=== PATIENT | male | born 1965 | race Caucasian/White ===

== ENCOUNTER 2016-09-09 05:49 | Observation (INO) | payer BC ==
[2016-08-12 11:42] VITALS: BMI 44.0
[~2016-09-09] VITALS: Ht 172.7 cm; Wt 131.3 kg
[~2016-09-09 05:49] MED LIST: AMOX500C3 PO; AMOX875T PO; LISI40TA PO; METO25TA3 PO; PRLSR20 PO; WARF5TAB7 PO
[2016-09-09] MEDS ORDERED: LACTATED RINGER'S 1000ML 1,000 ML IV SCH (06:00)
[2016-09-09] MEDS ORDERED: ALL100 PO (06:15)
[2016-09-09 06:19] VITALS: BP 139/88; PULSE 78; TEMP 36.4; O2SAT 96; BMI 44.0
[2016-09-09 07:00] LABS: INR 1.8 (0.9-1.1); PARTIAL THROMBOPLASTIN RATIO 1.3
[2016-09-09] MEDS ORDERED: ATROPINE SULFATE 0.1 MG/ML 5ML SYR IV PRN (07:15)
[2016-09-09] MEDS ORDERED: EpHEDrine SULFATE INJ 50 MG/ML AMP IV PRN (07:15)
[2016-09-09] MEDS ORDERED: PROPOFOL IV EMULSION 10 MG/ML 100 ML VIAL IV ONE ×2 (07:49→09:29)
--- NOTE | 2016-09-09 07:58 | HISTORY & PHYSICAL EXAMINATION ---
DATE OF ADMISSION: 09/09/2016 CHIEF COMPLAINT: Palpitations. HISTORY OF PRESENT ILLNESS: This is a 51-year-old gentleman, who I had seen in my office last month secondary to palpitations and SVT. He has been having palpitations for a couple of years, but they have been getting more frequent and lasting longer. He had been on metoprolol and was increased; however, we cannot increase it further secondary to bradycardia. He has not had any improvement in his palpitations. His palpitations are associated with lightheadedness and dizziness. He wears Zio patch that revealed SVT. He went to [facility] because the symptoms were not resolving and he had to call EMS at that time. PAST MEDICAL HISTORY: Aortic valve insufficiency, paroxysmal atrial tachycardia, gastroesophageal reflux disease, bicuspid aortic valve, lower extremity edema, gout, Crum's esophagitis, hyperlipidemia, hypertension PAST SURGICAL HISTORY: Catheterization, EGD, colonoscopy and injections over the SI joint. ALLERGIES: TO METOCLOPRAMIDE AND PHENYLEPHRINE. FAMILY HISTORY: His father had a bicuspid aortic valve that was eventually replaced as well as his mitral valve. His sister has MVP and has had a stroke. His mother had coronary artery disease and [place]. His brother had coronary artery disease and CABG and with mitral valve surgery and leukemia. SOCIAL HISTORY: He is a lifelong nonsmoker, but he did chew tobacco, quit 22 years ago. Rare alcohol use. 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 HOME MEDICATIONS: Include; Augmentin prophylactically before dental work, Toprol 25 mg twice a day, omeprazole 20 mg daily, allopurinol 100 mg twice a day, Coumadin, lisinopril 40 mg daily, Lasix 20 mg three times a week as needed for fluid accumulation. REVIEW OF SYSTEMS: All other review of systems are essentially negative. See HPI for pertinent positives. PHYSICAL EXAMINATION: VITAL SIGNS: Blood pressure 139/88 heart rate 78 respiratory rate 20 . GENERAL: He is awake, alert and oriented x3, in no acute distress, sitting up comfortably on a stretcher. HEENT: Atraumatic. Extraocular motion intact. Sclerae is nonicteric. Mucous membranes are moist. NECK: Supple, no JVD appreciated. CARDIOVASCULAR: Normal S1, S2, regular rate and rhythm, no murmur appreciated, but he is bradycardic. PULMONARY: Clear to auscultation bilaterally. No wheezes, rales or rhonchi. ABDOMEN: Soft, nontender and nondistended. EXTREMITIES: No clubbing or cyanosis in bilateral fingers, +1 edema of the bilateral lower extremities. NEUROLOGIC: Grossly intact. SKIN: Grossly intact. PERTINENT TESTING: Lucille patch in 07/10/2016 to 08/10/2016; average heart rate 70 beats per minute, slowest 35 beats per minute at 7:30 in the morning while sleeping. The patient wants through the night. Idioventricular rhythm while sleeping; bursts of SVT correlated with symptoms longest, fastest was a minute and 23 seconds with an average heart rate of 189 beats per minute. EKG on 07/13/2016; sinus janny 54 beats per minute. EKG on 06/18/2016 at [facility]; SVT at 162 beats per minute. Exercise echo stress test on 07/10/2016 was negative for any inducible ischemia, normal left ventricular function, ejection fraction of 55-59%, bicuspid aortic valve, mild aortic valve sclerosis and grade 1 diastolic dysfunction. LABORATORY STUDIES: Preoperatively CBC and BMP are unremarkable. ASSESSMENT: 1. Paroxysmal supraventricular tachycardia which might be atrial flutter; difficult to ascertain on the EKG, symptomatic though. 2. Hypertension. 3. Hyperlipidemia. 4. Bicuspid aortic valve. 5. Lower extremity edema. 6. History of deep venous thrombosis of the left lower extremity in November 2015, remains on Coumadin. 7. Morbid obesity. PLAN: Recommend electrophysiology study with possible ablation. We discussed the risks which include but are not limited to sudden cardiac , cardiac arrhythmias, cerebrovascular accident, myocardial infarction, injury to the blood vessels, chamber of the heart or the need of electrical system where he would need a permanent pacemaker, and infection. He expressed understanding and wished to proceed. He can continue his Coumadin with a goal INR the day of the procedure between 2 and 2.5. He is to hold his metoprolol 2 days before the procedure. ALEJA
[2016-09-09] MEDS ORDERED: MIDAZOLAM HCL 1 MG/ML 2ML VIAL ONE (07:59)
[2016-09-09] MEDS ORDERED: FENTANYL CITRATE INJ 50 MCG/1 ML 2 ML VIAL ONE ×2 (07:59→09:41)
[2016-09-09] MEDS ORDERED: LIDOCAINE HCL 2% 2 ML VIAL (20MG/ML) ONE (08:38)
[2016-09-09] MEDS ORDERED: PROPOFOL IV EMULSION 10 MG/ML 20 ML VIAL IV ONE ×2 (09:17→11:44)
[2016-09-09] MEDS ORDERED: ONDANSETRON INJ 2 MG/ML 2 ML VIAL ONE (10:05)
--- NOTE | 2016-09-09 12:01 | [facility] Post Operative Brief Note ---
Immediate Operative Summary Operative Date Sep 09, 2016. Pre-Operative Diagnosis SVT Post-Operative Diagnosis AVNRT Procedure(s) Performed EPS, 3D MAPPING OF HIS BUNDLE AND C/S OS, SLOW PATHYWAY MODIFICATION, C/S PACING, ISOPREL INFUSION Surgeon FREDDIE ABARCA Fabrication Technician Surgeon(s) NONE Estimated Blood Loss <5CC Findings SEE OFFICIAL REPORT Fluids (cc crystalloids) 1500CC Specimens NONE Drains NONE Anesthesia 4MG VERSED; 200MCG FENTANYL; 1800MG PROPOFOL Complication(s) None Disposition PCU
--- NOTE | 2016-09-09 12:07 | Discharge Instructions ---
Discharge Instructions Date of Service Sep 09, 2016. Admission Reason for Admission: Supraventricular Tachycardia W/Ablation Discharge Discharge Diagnosis / Problem: AVNRT Discharge Goals Goal(s): Improve function Activity Recommendations Activity Limitations: as noted below Lifting Limitations: no more than 10 pounds (FOR 1 WEEK) Shower/Bathe: tomorrow Driving or Machine Use: resume 1 day after discharge . Instructions / Follow-Up Instructions / Follow-Up ACTIVITY RECOMMENDATIONS: It is common to feel weak and fatigue for a few days. * Do not drive or operate any motorized equipment for the next day. * Limit stair usage (2 or 3 trips a day only) for the next three days. * Do not lift anything heavier than 10 pounds for the next 7 days. * Do not engage in vigorous exercise or any sports for the next five days. * You may shower the day after your procedure, but do not immerse the area for three days. Cleanse the site gently with soap and water. SPECIAL CARE INSTRUCTIONS: * You may replace the pressure dressing or band-aid the morning after the procedure. * After your procedure, it is normal to have a small bruise or small lump at the site. Examine your site daily for any change in the bruise or lump, redness, swelling, drainage or numbness. Notify your doctor if any change. BLEEDING: * If there is a small amount of bleeding at the site, lie down and apply firm pressure with a clean cloth for ten minutes. When the bleeding stops, lie quietly keeping the procedure limb straight for six hours. Notify your doctor as soon as possible. * If the bleeding does not stop after ten minutes or if there is a large amount of bleeding or spurting, call 911 immediately. Continue to lie down and hold firm pressure until help arrives. SKIN IRRITATION: * You may experience some redness and/or swelling in the area where radiation was administered. If any skin irritation occurs, please contact your family physician. FOLLOW UP VISIT: Keep any scheduled doctor appointments. Current Hospital Diet Patient's current hospital diet: AHA Diet (Heart Healthy) Discharge Diet Recommended Diet: AHA Diet (Heart Healthy) Procedures Procedures Performed: EPS, 3D MAPPING OF HIS BUNDLE AND C/S OS, SLOW PATHYWAY MODIFICATION, C/S PACING, ISOPREL INFUSION Pending Studies Studies pending at discharge: no Medical Emergencies . Who to Call and When: Medical Emergencies: If at any time you feel your situation is an emergency, please call 911 immediately. . Non-Emergent Contact Non-Emergency issues call your: Plastic Extruding Machine Operator . . "Provider Documentation" section prepared by Mi Gomez. VTE Core Measure Inpt VTE Proph given/why not?: Warfarin (Coumadin)
--- NOTE | 2016-09-09 12:11 | Discharge Summary ---
Discharge Summary Date of Service Sep 09, 2016. Discharge Summary Admission Date: 09/09/2016 Discharge Date: Sep 10, 2016 Discharge Disposition: Home Principal Diagnosis: AVNRT Secondary Diagnoses/Problems: Sinus tachycardia HTN HLD Bicuspid AV LE edema DVT 11/2015 remains on coumadin Morbid obesity Procedures: EPS, 3d mapping of the HIS bundle and c/s os, slow pathyway modification; LA pacing, isuprel infusion Medication Reconciliation Continued Medications: Allopurinol (Allopurinol) 100 Mg Tab DAILY Amoxicillin (Amoxil) 500 Mg Cap 2000 MG PO UD PRN for Pre Treat, CAP TAKE 4 CAPSULES BY MOUTH 1 HOUR BEFORE DENTAL PROCEDURES Lisinopril (Zestril) 40 Mg Tab 40 MG PO QPM, TAB Metoprolol Succinate (Toprol Xl) 25 Mg Tabcr 25 MG PO BID, TAB Omeprazole (Prilosec) 20 Mg Capcr 20 MG PO QPM, CAP Warfarin Sod (Jantoven) 5 Mg Tab 7.5 MG PO MWF, TAB Warfarin Sod (Jantoven) 5 Mg Tab 5 MG PO SuTuThSa, TAB Admission Information Physical Exam (per Admitting): aaox3, NAD NC/AT No JVD NRL s1/s2, tachycardia CTA b/l no w/r/r soft NT/ND no edema b/l Hospital Course Pt admitted for elective EPS with ablation due to SVT. He underwent the procedure without any complications; found to have AVNRT had a slow pathway modification. He was monitored overnight and discharged home in stable condition following day. Total time spent on discharge = This includes examination of the patient, discharge planning, medication reconciliation, and communication with other providers. Discharge Instructions ACTIVITY RECOMMENDATIONS: It is common to feel weak and fatigue for a few days. * Do not drive or operate any motorized equipment for the next day. * Limit stair usage (2 or 3 trips a day only) for the next three days. * Do not lift anything heavier than 10 pounds for the next 7 days. * Do not engage in vigorous exercise or any sports for the next five days. * You may shower the day after your procedure, but do not immerse the area for three days. Cleanse the site gently with soap and water. SPECIAL CARE INSTRUCTIONS: * You may replace the pressure dressing or band-aid the morning after the procedure. * After your procedure, it is normal to have a small bruise or small lump at the site. Examine your site daily for any change in the bruise or lump, redness, swelling, drainage or numbness. Notify your doctor if any change. BLEEDING: * If there is a small amount of bleeding at the site, lie down and apply firm pressure with a clean cloth for ten minutes. When the bleeding stops, lie quietly keeping the procedure limb straight for six hours. Notify your doctor as soon as possible. * If the bleeding does not stop after ten minutes or if there is a large amount of bleeding or spurting, call 911 immediately. Continue to lie down and hold firm pressure until help arrives. SKIN IRRITATION: * You may experience some redness and/or swelling in the area where radiation was administered. If any skin irritation occurs, please contact your family physician. FOLLOW UP VISIT: Keep any scheduled doctor appointments.
[2016-09-09 13:01] VITALS: BP 153/72; PULSE 78; TEMP 36.8; O2SAT 98; Ht 172.7 cm; Wt 131.3 kg
--- NOTE | 2016-09-09 14:40 | Anesthesiology Progress Note ---
Anesthesia Post Op Note Date & Time Sep 09, 2016 at 14:40 Vital Signs Pain Intensity: 0.0 Vital Signs Past 12 Hours Date Time Temp Pulse Resp B/P Pulse Ox O2 Delivery O2 Flow Rate FiO2 09/09/16 13:01 36.8 78 18 153/72 98 Nasal Cannula 4.0 09/09/16 12:08 95 16 129/89 98 Nasal Cannula 4 09/09/16 11:58 93 16 112/75 98 Nasal Cannula 4 09/09/16 11:48 95 16 109/69 98 Nasal Cannula 4 09/09/16 06:19 36.4 78 20 139/88 96 Room Air Notes Mental Status: alert / awake / arousable, participated in evaluation Pt Amnestic to Procedure: Yes Nausea / Vomiting: adequately controlled Pain: adequately controlled Airway Patency, RR, SpO2: stable & adequate BP & HR: stable & adequate Hydration State: stable & adequate Anesthetic Complications: no major complications apparent
[2016-09-09] MEDS ORDERED: IV FLUIDS COMPLETED PRN (14:45)
[2016-09-09 15:29] VITALS: BP 126/78; PULSE 78; TEMP 36.7; O2SAT 97
[2016-09-09] MEDS ORDERED: WARFARIN SOD 7.5 MG TAB PO SCH (16:00)
[2016-09-09 19:46] VITALS: BP 129/75; PULSE 76; TEMP 36.6; O2SAT 97
[2016-09-09] MEDS ORDERED: LISINOPRIL 40 MG TAB PO SCH (21:00)
[2016-09-09 23:05] VITALS: BP 129/84; PULSE 72; TEMP 36.9; O2SAT 93
[2016-09-09 23:59] VITALS: O2SAT 93
--- NOTE | 2016-09-10 00:32 | OPERATIVE REPORT ---
DATE OF OPERATION: 09/09/2016 PREOPERATIVE DIAGNOSIS: Supraventricular tachycardia. POSTOPERATIVE DIAGNOSIS: Atrioventricular sylvia reentrant tachycardia. PROCEDURE: Electrophysiology study, 3D mapping of the His bundle and coronary sinus region, slow pathway modification, left atrial pacing via the coronary sinus, isuprel infusion. SURGEON: Mi Gomez DO AUTOMATIC OUTSOLE CUTTER: None. ANESTHESIA: Monitored anesthetic care given via the anesthesiology department, they gave a total of 4 mg of Versed, 200 mcg of fentanyl, 1800 mg of propofol. INTRAVENOUS FLUIDS: 1500 mL. ADDITIONAL MEDICATIONS: Zofran 4 mg. COMPLICATIONS: None. CONDITION: Stable. BLOOD LOSS: Less than 5 mL. URINE OUTPUT: Not applicable. SPECIMENS: None. DRAINS: None. FINDINGS: See below. INDICATIONS: This is a 51-year-old gentleman who has a past medical history of hypertension; hyperlipidemia; bicuspid aortic valve; lower extremity edema; DVT back in November of 2015, he is still on Coumadin; and morbid obesity. He has been having palpitations for years and has had documented SVT at the rate of 160, due to this he was recommended electrophysiology study with possible ablation. CONSENT: Consent was obtained prior to patient going into the electrophysiology lab. The patient was informed of risks, benefits and alternatives to the procedure. Risks include but not limited to sudden cardiac , cardiac arrhythmias, cerebrovascular accident, myocardial infarction, injury to the blood vessels, chamber of the hear or the [place] electrical system where he would need a permanent pacemaker, bleeding and infection. The patient understood these risks and agreed to go ahead with the procedure as planned. Informed consent was obtained. DESCRIPTION OF THE PROCEDURE: The patient was brought into the electrophysiology lab in a fasting state. He was connected to continuous lunchroom monitor. A timeout was performed to ensure patient's identity and procedure correctly. The patient was prepped and draped over the bilateral groins in normal surgical standard fashion. Monitored anesthetic care was given throughout the procedure via anesthesiology for patient's comfort level. [place] precautions were maintained throughout the procedure. 10 mL of 1% lidocaine were given in bilateral groins. Using modified Seldinger technique, venous access was obtained in the following manner. The left femoral vein, a 6-Barbadian sheath followed by Paty quad diagnostic catheter positioned in the right ventricular apex. A 7-Barbadian sheath with a [employer] quadripolar catheter positioned over the His bundle. A 7-Barbadian sheath followed by a [employer] DF curve Decapolar coronary sinus ____ sinus. The right femoral vein had a 6-Barbadian sheath followed by Paty quadripolar catheter positioned in the high right atrium, and eventually an SRO sheath followed by a [employer] 4 mm DF curve ablation catheter. With the catheters in place, an electrophysiology study was performed with the following findings: GA interval 174 milliseconds, QRS 96 milliseconds, right bundle branch underlying QT is 292 milliseconds, sinus cycle length was 452 milliseconds, the AV Wenckebach was found to be 240 milliseconds. The AV node ERP was less than or equal to the atrial ERP and atrial ERP was found to be 400/210. The right ventricular ERP was less than or equal to 400/200 with giving atrial extrastimuli I did have single echo beats. I gave up to triple atrial extrastimuli from the high right atrium and then as well coronary sinus without any inducible SVT, but I did have some occasional echoes. With isuprel at 2 was started and once we had an adequate response, electrophysiology study was performed with the following findings: Sinus cycle length 382 milliseconds, AH 66 milliseconds, HV 50 milliseconds, AV Wenckebach less than 200 milliseconds and the RV ERP was less than or equal to 350/200. The AV node ERP was less than or equal to the atrial, and the atrial ERP was 400/220. I gave up to triple atrial extrastimuli from the high right atrium and the coronary sinus, and burst down to 200 without any inducible SVT. We then stopped the isuprel and during washout I retried again to induce AV and SVT, which I ultimately did at 400/320/250 from the high right atrium. I had 12 beats of a tachycardia with a tachycardia cycle length was 340 milliseconds, the VA time was 0. Again, it was nonsustained and only lasting for 12 beats but I was able to reproduce it a few times, and the retrograde conduction was concentric on the SVT. Given that I had documented 12-lead and SVT around the same cycle length as nonsustained that I produced in the lab and nonsustained given its VA time and presence of echo beats, it is highly suggestive that he has evidence of AVNRT. We set up to do a slow pathway modification. It was at this point that the second venous access of the right femoral vein was obtained and the SRO sheath was placed and then the ablation catheter was placed. We did 3D mapping of the His bundle cloud as well as the coronary sinus. Then positioned the ablation catheter on the low right atrial septum wall and gave a series of radiofrequency ablation of 35 [place] for about 15-30 seconds with some of these ablations having good junctional rhythms during the ablation. After I gave a series of ablations, I then removed the catheter from the heart and set up to do a post-ablation electrophysiology study with the following findings: GA interval 204 milliseconds, QRS 136 milliseconds, again a right bundle branch block was present, QT is 312 milliseconds. Sinus cycle length 552 milliseconds, AH 92 milliseconds, HV 56 milliseconds, AV Wenckebach 300 milliseconds, the AV node ERP was less than or equal to the atrial, the atrial ERP was 450/210 from the high rate atrium and 450/220 from the coronary sinus, right ventricular ERP was 450/200. I gave up to triples from the high right atrium and the coronary sinus and did not induce any arrhythmias or any of that nonsustained arrhythmia and did not have any echo beats. I then started isuprel at 2 with the following findings in electrophysiology study. Sinus cycle length 554 milliseconds, AH 76 milliseconds, HV 50 milliseconds, AV Wenckebach 250 milliseconds, AV node ERP less than or equal to the atrial, atrial ERP 450/200. The right ventricular ERP was 350/288. I gave up to triples from the high right atrium and the coronary sinus with no evidence of tachycardia. I did see 1 echo here and there. We then stopped the isuprel and during washout, I still tried to induce further and I was not able to induce any of the AVNRT or tachycardia. We then removed all the catheters from the body, used manual compression to pull the sheath and establish hemostasis. CONCLUSION: 1. Nonsustained typical AVNRT. 2. Successful slow pathway modification. 3. Normal AV sylvia function. PLAN: Monitor patient overnight, 12-lead ECG. Since he does have some baseline sinus tachycardia, I think it is prudent that he does continue his metoprolol, maybe we can get away with 25 a day instead of 25 twice a day. He is not to do any heavy lifting or squatting for a week and he should follow up in my [facility] office in 1 month. I attest to the content of the Intraoperative Record and any orders documented therein. Any exceptio ns are noted below.
[2016-09-10 03:44] VITALS: BP 122/77; PULSE 81; TEMP 37.1; O2SAT 94
[2016-09-10 04:00] VITALS: O2SAT 94
[2016-09-10 06:34] LABS: INR 1.8 (0.9-1.1); PROTHROMBIN TIME (PATIENT) 19.4 SECONDS (9.0-12.0)
--- NOTE | 2016-09-10 08:28 | Cardiology Follow-Up ---
Subjective Subjective Date of Service: Sep 10, 2016. Pt evaluation today including: conversation w/ patient, physical exam Pain: none Problem List Medical Problems: (1) Acute chest pain Status: Acute (2) Anticoagulated on Coumadin Status: Acute (3) Bicuspid aortic valve Status: Acute (4) Nonsustained supraventricular tachycardia Status: Acute (5) Tachycardia Status: Acute Review of Systems Constitutional: No fatigue Respiratory: No dyspnea on exertion, No shortness of breath Cardiac: No chest pain, No edema, No palpitations Neurologic: No weakness Endo: No fatigue Objective Vital Signs Last Vital Signs Documentation Date Time Temp Pulse Resp B/P Pulse Ox O2 Delivery O2 Flow Rate FiO2 09/10/16 04:00 94 Room Air 09/10/16 03:44 37.1 81 19 122/77 09/09/16 13:01 4.0 Physical Exam: General Appearance: WD/WN, no apparent distress Eyes: bilateral eyes EOMI, bilateral eyes PERRL Neck: supple, no JVD Respiratory/Chest: chest non-tender, lungs clear Cardiovascular: regular rate, rhythm, no edema, no JVD, no murmur Abdomen: normal bowel sounds, non tender, soft (b/l groins soft no hematoma) Extremities: no pedal edema Neurologic/Psychiatric: alert, normal mood/affect, oriented x 3 Skin: normal color, warm/dry Assessment and Plan Impression 1. AVNRT s/p slow pathway modification 08/12/2016 2. HTN 3. Bicuspid AV 4. H/o DVT 11/2015 remains on coumadin 5. Obesity Plan: -Ok for discharge home today -Reduce Metoprolol to 25mg daily -continue home medications -No heavy lifting for 1 week -f/u in my office in 1 month Discharge planning: home Medications: Medications Administered Medications (Trade) Dose Ordered Sig/Erika Route Start Time Stop Time Status Last Admin Dose Admin Lisinopril (Zestril Tab) 40 mg QPM PO 09/09/16 21:00 10/09/16 20:59 09/09/16 20:28 40 MG Warfarin Sodium (Coumadin Tab) 7.5 mg MoWeFr@1600 PO 09/09/16 16:00 10/09/16 15:59 09/09/16 16:31 7.5 MG Lab Results: Telemetry: SR ECG:SR with SA Last 24 Hours Test 09/10/16 05:17 Prothrombin Time 19.4 SECONDS Prothromb Time International Ratio 1.8
[2016-09-10 08:42] VITALS: BP 150/78; PULSE 74; TEMP 37.3; O2SAT 92
[2016-09-10 08:49] VITALS: BP 150/78; PULSE 74; TEMP 37.3; O2SAT 92
[2016-09-10] MEDS ORDERED: METOPROLOL SUCC 25MG EXT REL TAB PO SCH (09:00)
[2016-09-10] MEDS ORDERED: WARFARIN SOD 5 MG TAB PO SCH (16:00)
== END 2016-09-10 10:00 | disposition home or self-care (01) ==
LOC: C.ACU 05:49 → C.2T 11:45
PROVIDERS: ADMIT Internal Medicine; ATTEND Internal Medicine
DX: I47.1 Supraventricular tachycardia (principal); I10 Essential (primary) hypertension; E66.01 Morbid (severe) obesity due to excess calories; E78.5 Hyperlipidemia, unspecified; I35.1 Nonrheumatic aortic (valve) insufficiency; K21.9 Gastro-esophageal reflux disease without esophagitis; K22.70 Barrett's esophagus without dysplasia; Z79.01 Long term (current) use of anticoagulants; Z86.718 Personal history of other venous thrombosis and embolism; Z87.891 Personal history of nicotine dependence; Z82.49 Family history of ischemic heart disease and other diseases of the circulatory system; Z80.6 Family history of leukemia

== ENCOUNTER 2016-10-24 20:00 | Emergency (ER) | payer BC ==
[~2016-10-24] VITALS: Ht 175.3 cm; Wt 137.1 kg
[~2016-10-24 20:00] MED LIST changes: +ALL100 PO; -AMOX875T PO
[2016-10-24 20:09] VITALS: TEMP 36.8; O2SAT 98; Ht 175.3 cm; Wt 137.1 kg
[2016-10-24] MEDS ORDERED: FURO-85 PO (20:09)
--- NOTE | 2016-10-24 20:26 | EMERGENCY ROOM VISIT NOTE ---
History Report prepared by Dickson: Desiree Mcgee Under the Supervision of: Dr. Unruly Valerio M.D. First contact with patient: 20:10 Chief Complaint: CHEST PAIN Stated Complaint: CHEST PAIN History of Present Illness The patient is a 51 year old male who presents to the Emergency Room with complaints of resolved sharp left sided chest pain beginning 1 hour ago. The patient states that he bent over to empty his dehumidifier when the chest pain began and it lasted 10-15 minutes. He notes that when he stood up and took a deep breath his chest pain worsened and with each consecutive breath his pain would worsen. He complains of pain and swelling in his legs that is not unusual and shortness of breath. He denies any recent trauma to the chest. The patient reports that he has a history of A-Fib, SVT and bicuspid aortic. He notes that he had a stress echo at the beginning of this year after he states that he had a nerve in his heart shocked. The patient states that he is on Warfarin for a blood clot that he had 1 year ago in his leg but denies any history of pulmonary embolism. 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 He notes that he has been taking all of his medication. 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 Source of History: patient, spouse/significant other Onset: 1 hour ago Position: chest Quality: sharp Timing: resolved Modifying Factors (Worsening): breathing Associated Symptoms: + SOB Note: He complains of pain and swelling in his legs that is not unusual. He denies any recent trauma to the chest. Review of Systems See HPI for pertinent positives & negatives. A total of 10 systems reviewed and were otherwise negative. Past Medical & Surgical Medical Problems: (1) AVNRT (AV sylvia re-entry tachycardia) (2) Crum's esophagus (3) Benign hypertension (4) Catheterization of left heart (5) Chest pain (6) Heart disease Old medical records were reviewed. Nurse's notes were reviewed and I agree with. Chronic anticoagulation with Coumadin Family History FH: cardiovascular disease Social History Smoking Status: Never Smoker Alcohol Use: occasionally Marital Status: Housing Status: lives with significant other Occupation Status: employed Current/Historical Medications Scheduled Allopurinol (Allopurinol), 100 MG PO BID Furosemide (Lasix), 20 MG PO 3XWK Lisinopril (Zestril), 40 MG PO DAILY Metoprolol Succinate (Toprol Xl), 25 MG PO BID Omeprazole (Prilosec), 20 MG PO DAILY Warfarin Sod (Jantoven), 10 MG PO UD Scheduled PRN Amoxicillin (Amoxil), 2,000 MG PO UD PRN for Pre Treat Allergies Coded Allergies: Acetaminophen (Verified Allergy, Mild, MIGHT HAVE CAUSED RAPID HEART BEAT , 09/09/16) Dextromethorphan (Verified Allergy, Mild, MIGHT HAVE CAUSED RAPID HEART BEAT, 09/09/16) Doxylamine (Verified Allergy, Mild, MIGHT HAVE CAUSED RAPID HEART BEAT, ) Ethanol (Verified Allergy, Mild, MIGHT HAVE CAUSED RAPID HEART BEAT, ) Pseudoephedrine (Verified Allergy, Mild, MIGHT HAVE CAUSED RAPID HEART BEAT, 08/12/16) Phenylephrine (Unverified Allergy, Unknown, SVT per records , 08/13/16) Metoclopramide (Verified Adverse Reaction, Unknown, TREMORS, 08/12/16) Physical Exam Vital Signs Date Time Temp Pulse Resp B/P Pulse Ox O2 Delivery O2 Flow Rate FiO2 10/24/16 23:13 65 18 135/96 96 Room Air 10/24/16 22:39 63 18 147/99 95 Room Air 10/24/16 21:43 65 18 175/108 98 Room Air 10/24/16 20:38 57 18 153/98 96 Room Air 10/24/16 20:30 67 10/24/16 20:09 98 Room Air 10/24/16 20:09 36.8 65 20 171/96 98 Room Air 10/24/16 20:09 98 Room Air Physical Exam General: Well developed well nourished non ill appearing middle age male in no acute distress, breathing comfortably on room air. Normal speech HEENT: Normal cephalic atraumatic. Pupils are equal round and reactive to light. Extraocular movements are intact. Oropharynx is pink with moist mucous membranes. No swelling of the mouth lips or tongue. Neck: Supple with a midline trachea. No meningeal signs or stiffness, no JVD or bruits. No Stridor. Chest: Clear to auscultation bilaterally. No wheezes or rhonchi. No increased work of breathing. Denies any current chest pain, not reproducibly tender. Heart: regular rate and rhythm. Abdomen: Soft nontender, nondistended without rebound guarding or rigidity. Extremities: No cyanosis clubbing or edema. No calf tenderness or assymetry Spine/Back. Non tender to palpation. No CVA tenderness Skin: Good turgor without rashes. Neurologic exam: Cranial nerves two through 12 are intact. Motor and sensation are intact and symmetrical throughout. Medical Decision & Procedures ER Provider Diagnostic Interpretation: Radiology results as stated below per my review and radiologist interpretation: CHEST ONE VIEW PORTABLE FINDINGS: The bones soft tissues and hemidiaphragms are normal. The cardiomediastinal silhouette is normal. The lungs are clear. The pulmonary vasculature is normal. IMPRESSION: Negative chest. Electronically signed by: Tee De La Rosa M.D. 10/24/2016 8:34 PM Dictated Date/Time: 10/24/2016 8:34 PM CHEST CTA for PULMONARY ARTERIES FINDINGS: There is a normal caliber thoracic aorta with no evidence for dissection. There is no evidence for pulmonary embolus. No pleural effusions. No pneumothorax. The liver and spleen are unremarkable. No mediastinal or hilar lymphadenopathy. The central airways are patent. The lungs are clear. IMPRESSION: No evidence for pulmonary embolus. Electronically signed by: Tee De La Rosa M.D. 10/24/2016 9:50 PM Dictated Date/Time: 10/24/2016 9:48 PM Laboratory Results 10/24/16 19:25 Red Blood Count 5.05, Mean Corpuscular Volume 88.3, Mean Corpuscular Hemoglobin 29.1, Mean Corpuscular Hemoglobin Concent 33.0, Mean Platelet Volume 9.0, Neutrophils (%) (Auto) 61.8, Lymphocytes (%) (Auto) 25.4, Monocytes (%) (Auto) 9.3, Eosinophils (%) (Auto) 1.7, Basophils (%) (Auto) 0.3, Neutrophils # (Auto) 4.40, Lymphocytes # (Auto) 1.81, Monocytes # (Auto) 0.66, Eosinophils # (Auto) 0.12, Basophils # (Auto) 0.02 10/24/16 19:25 Test 10/24/16 19:25 10/24/16 20:29 10/24/16 20:32 White Blood Count 7.12 K/uL (4.8-10.8) Red Blood Count 5.05 M/uL (4.7-6.1) Hemoglobin 14.7 g/dL (14.0-18.0) Hematocrit 44.6 % (42-52) Mean Corpuscular Volume 88.3 fL (80-100) Mean Corpuscular Hemoglobin 29.1 pg (25-34) Mean Corpuscular Hemoglobin Concent 33.0 g/dl (32-36) Platelet Count 193 K/uL (130-400) Mean Platelet Volume 9.0 fL (7.4-10.4) Neutrophils (%) (Auto) 61.8 % Lymphocytes (%) (Auto) 25.4 % Monocytes (%) (Auto) 9.3 % Eosinophils (%) (Auto) 1.7 % Basophils (%) (Auto) 0.3 % Neutrophils # (Auto) 4.40 K/uL (1.4-6.5) Lymphocytes # (Auto) 1.81 K/uL (1.2-3.4) Monocytes # (Auto) 0.66 K/uL (0.11-0.59) Eosinophils # (Auto) 0.12 K/uL (0-0.5) Basophils # (Auto) 0.02 K/uL (0-0.2) RDW Standard Deviation 40.6 fL (36.4-46.3) RDW Coefficient of Variation 12.8 % (11.5-14.5) Immature Granulocyte % (Auto) 1.5 % Immature Granulocyte # (Auto) 0.11 K/uL (0.00-0.02) Prothrombin Time 22.0 SECONDS (9.0-12.0) Prothromb Time International Ratio 2.0 (0.9-1.1) Activated Partial Thromboplast Time 36.8 SECONDS (21.0-31.0) Partial Thromboplastin Ratio 1.4 Est Creatinine Clear Calc Drug Dose 106.9 ml/min Estimated GFR () 88.4 Estimated GFR (Non- 76.2 BUN/Creatinine Ratio 16.8 (10-20) Calcium Level 9.0 mg/dl (8.5-10.1) Total Bilirubin 0.3 mg/dl (0.2-1) Direct Bilirubin < 0.1 mg/dl (0-0.2) Aspartate Amino Transf (AST/SGOT) 21 U/L (15-37) Alanine Aminotransferase (ALT/SGPT) 30 U/L (12-78) Alkaline Phosphatase 59 U/L (45-117) Total Creatine Kinase 232 U/L (39-308) Creatine Kinase MB 5.7 ng/ml (0.5-3.6) Creatine Kinase MB Ratio 2.5 (0-3.0) Total Protein 6.3 gm/dl (6.4-8.2) Albumin 3.7 gm/dl (3.4-5.0) Lipase 132 U/L (73-393) Bedside Hemoglobin 14.3 g/dl (14.0-18.0) Bedside Hematocrit 42 % (42-52) Bedside Sodium 140 mEq/L (135-144) Bedside Potassium 3.9 mEq/L (3.3-5.0) Bedside Chloride 99 mEq/L (101-112) Bedside Total CO2 29 mEq/l (24-31) Anion Gap 17.0 mmol/L (16-25) Bedside Blood Urea Nitrogen 19 mg/dl (7-18) Bedside Creatinine 1.2 mg/dl (0.6-1.3) Bedside Glucose (other) 87 mg/dl (70-99) Bedside Ionized Calcium (Ruby) 1.23 mmol/l (1.12-1.32) Bedside Troponin I 0.000 ng/ml (0-0.045) JJ-[id number]-[id number]-Type Natriuretic Peptide 98 pg/ml (0-900) Laboratory studies as stated above per my review. ECG Indication: chest pain Rate (beats per minute): 63 Rhythm: normal sinus Findings: no acute ischemic change, other (sinus arrythmia, LVH) Comparison ECG Date: 09/09/16 Change: no significant change ED Course 2010: Past medical records reviewed. The patient was evaluated in room C4, and a complete history and physical examination were performed. 2203: I reevaluated the patient and he is doing well. 2219: I reevaluated the patient. He is feeling better and will be going home. 6: Upon reevaluation, the patient is doing well. I discussed the results and treatment plan with the patient. He verbalized agreement of the treatment plan. The patient was discharged home. Medical Decision Differential diagnosis includes PE, acute coronary syndrome, arrhythmia, A-Fib, musculoskeletal, pneumothorax. Medication reconciliation : I personally reviewed the patient's medication list. He is on Coumadin Hypertension screening: The patient is currently being treated for high blood pressure and is on appropriate meds and prior to discharge he was normotensive This patient comes in as described above. He was placed in room C4. He had sudden onset of sharp left-sided chest pain is pleuritic he said it only hurt when he would breathe. He looks well at present and the pain has resolved it occurred after he bent over. He does have a history of arrhythmia and had ablation. He is on Coumadin for a history of a DVT. No history of PE. IV access established blood work was obtained EKG does not suggest acute coronary syndrome or significant arrhythmia. Chest x-ray was unremarkable. He has no acute electrolyte or metabolic abnormalities. I did a chest CT and there is no evidence of PE or other acute abnormality which would explain his symptoms. Troponin is not elevated enough is likely cardiac event. He feels good and like to go home at think this is reasonable at this point is no evidence suggest PE or pulmonary disease or acute coronary syndrome. I encouraged him to return if he has increasing or recurrence of symptoms, worsening symptoms, any new problems or concerns. He is happy with plan and discharged home. Impression Primary Impression: Left sided chest pain Additional Impression: Pleurisy Scribe Attestation The scribe's documentation has been prepared under my direction and personally reviewed by me in its entirety. I confirm that the note above accurately reflects all work, treatment, procedures, and medical decision making performed by me. Departure Information Dispostion Home / Self-Care Referrals Joshua Machado M.D.([facility]) (PCP) Forms HOME CARE DOCUMENTATION FORM, IMPORTANT VISIT INFORMATION Patient Instructions My [facility] Additional Instructions Rest. Drink plenty of fluids. Return if: Worsening symptoms, increasing pain, further episodes of pain, any new problems or concerns Follow-up with your doctor on Wednesday for recheck. Problem Qualifiers
[2016-10-24 20:28] LABS: BASO % 0.3 %; BASO ABS # 0.02 K/uL (0-0.2); COMPLETE YES; EOS % 1.7 %; HEMATOCRIT 44.6 % (42-52); IG% 1.5 %; LYMPH % 25.4 %; LYMPH ABS # 1.81 K/uL (1.2-3.4); MEAN CELL VOLUME 88.3 fL (80-100); MEAN CORPUSCULAR HEMOGLOBIN 29.1 pg (25-34); MONO % 9.3 %; NEUT % 61.8 %; PLATELET COUNT 193 K/uL (130-400); RED BLOOD COUNT 5.05 M/uL (4.7-6.1); WHITE BLOOD COUNT 7.12 K/uL (4.8-10.8)
[2016-10-24] MEDS ORDERED: OPTIRAY 320 IV PRN (20:30)
--- NOTE | 2016-10-24 20:35 | DIAGNOSTIC IMAGING REPORT ---
CHEST ONE VIEW PORTABLE CLINICAL HISTORY: CHEST PAIN dyspnea COMPARISON STUDY: 06/18/2016 FINDINGS: The bones soft tissues and hemidiaphragms are normal. The cardiomediastinal silhouette is normal. The lungs are clear. The pulmonary vasculature is normal. IMPRESSION: Negative chest. Electronically signed by: Tee De La Rosa M.D. 10/24/2016 8:34 PM Dictated Date/Time: 10/24/2016 8:34 PM
[2016-10-24 20:45] LABS: ALT/SGPT 30 U/L (12-78); BLOOD UREA NITROGEN 19 mg/dl (7-18); BUN/CREATININE RATIO 16.8 (10-20); CARBON DIOXIDE 29 mmol/L (21-32); CHLORIDE 104 mmol/L (98-107); GLUCOSE 85 mg/dl (70-99); POTASSIUM 3.9 mmol/L (3.5-5.1); SODIUM 141 mmol/L (136-145)
[2016-10-24 20:46] LABS: PARTIAL THROMBOPLASTIN RATIO 1.4
[2016-10-24 20:50] LABS: ALKALINE PHOSPHATASE 59 U/L (45-117); AST/SGOT 21 U/L (15-37); CKMB/CK RATIO 2.5 (0-3.0)
[2016-10-24 21:03] LABS: ISTAT CREATININE 1.2 mg/dl (0.6-1.3); ISTAT HEMOGLOBIN 14.3 g/dl (14.0-18.0); ISTAT IONIZED CALCIUM 1.23 mmol/l (1.12-1.32)
--- NOTE | 2016-10-24 21:51 | DIAGNOSTIC IMAGING REPORT ---
CHEST CTA for PULMONARY ARTERIES CT DOSE: 805.44 mGy.cm HISTORY: Chest pain dyspnea TECHNIQUE: Multiaxial CT images of the chest were performed following the intravenous administration of contrast to evaluate the pulmonary arteries. Maximal intensity projection images were also obtained. COMPARISON STUDY: None. FINDINGS: There is a normal caliber thoracic aorta with no evidence for dissection. There is no evidence for pulmonary embolus. No pleural effusions. No pneumothorax. The liver and spleen are unremarkable. No mediastinal or hilar lymphadenopathy. The central airways are patent. The lungs are clear. IMPRESSION: No evidence for pulmonary embolus. Electronically signed by: Tee De La Rosa M.D. 10/24/2016 9:50 PM Dictated Date/Time: 10/24/2016 9:48 PM
[2016-10-24 23:13] VITALS: BP 135/96; PULSE 65; O2SAT 96
== END 2016-10-24 23:27 | disposition home or self-care (01) ==
LOC: EDBD 20:00 → C.EDC 20:02
DX: R07.9 Chest pain, unspecified (principal); R09.1 Pleurisy; I48.91 Unspecified atrial fibrillation; Q23.1 Congenital insufficiency of aortic valve; Z79.01 Long term (current) use of anticoagulants; Z86.718 Personal history of other venous thrombosis and embolism; I47.1 Supraventricular tachycardia; K22.70 Barrett's esophagus without dysplasia; I10 Essential (primary) hypertension; Z79.899 Other long term (current) drug therapy

== ENCOUNTER 2017-07-04 13:42 | Emergency (ER) | payer BC ==
[~2017-07-04] VITALS: Ht 170.2 cm; Wt 124.0 kg
[~2017-07-04 13:42] MED LIST changes: +FURO-85 PO
[2017-07-04 13:52] VITALS: TEMP 36.7; Ht 170.2 cm; Wt 124.0 kg
[2017-07-04 14:44] LABS: BASO % 0.4 %; BASO ABS # 0.03 K/uL (0-0.2); EOS % 1.9 %; EOS ABS # 0.16 K/uL (0-0.5); HEMATOCRIT 41.7 % (42-52); HEMOGLOBIN 14.9 g/dL (14.0-18.0); IG# 0.06 K/uL (0.00-0.02); LYMPH % 19.1 %; LYMPH ABS # 1.58 K/uL (1.2-3.4); MEAN CELL VOLUME 87.6 fL (80-100); MEAN CORPUSCULAR HEMOGLOBIN 31.3 pg (25-34); MEAN CORPUSCULAR HGB CONC 35.7 g/dl (32-36); MEAN PLATELET VOLUME 9.4 fL (7.4-10.4); MONO % 7.1 %; MONO ABS # 0.59 K/uL (0.11-0.59); NEUT % 70.8 %; NEUT ABS # 5.85 K/uL (1.4-6.5); PLATELET COUNT 181 K/uL (130-400); RED CELL DISTRIBUTION WIDTH CV 12.5 % (11.5-14.5); RED CELL DISTRIBUTION WIDTH SD 40.1 fL (36.4-46.3); WHITE BLOOD COUNT 8.27 K/uL (4.8-10.8)
[2017-07-04 14:54] LABS: PTT PATIENT 26.1 SECONDS (21.0-31.0)
[2017-07-04 15:02] LABS: ALBUMIN 3.7 gm/dl (3.4-5.0); CALCIUM 8.8 mg/dl (8.5-10.1); CREATININE 1.61 mg/dl (0.60-1.40); POTASSIUM 3.9 mmol/L (3.5-5.1)
[2017-07-04 15:04] LABS: TOTAL PROTEIN 6.4 gm/dl (6.4-8.2)
--- NOTE | 2017-07-04 15:16 | DIAGNOSTIC IMAGING REPORT ---
ADDENDUM Comparison made to a 12/17/2015 venous Doppler study. The left popliteal vein thrombosis is unchanged and therefore likely chronic. Electronically signed by: Itz Beaulieu M.D. 07/04/2017 3:50 PM Dictated Date/Time: 07/04/2017 3:50 PM ORIGINAL REPORT LEFT LOWER EXTREMITY VENOUS DOPPLER HISTORY: Left leg swelling. COMPARISON STUDY: None. FINDINGS: Occlusive thrombus seen within the left popliteal vein. There is also superficial vein thrombus identified within the greater saphenous vein and its branches at the level of the thigh. IMPRESSION: 1. Positive DVT within the left popliteal vein. 2. There is also superficial vein thrombus identified within the greater saphenous vein. Electronically signed by: Itz Beaulieu M.D. 07/04/2017 3:15 PM Dictated Date/Time: 07/04/2017 3:13 PM
[2017-07-04] MEDS ORDERED: ASPI81TA28 PO (15:23)
[2017-07-04 15:33] VITALS: BP 126/75; PULSE 78; O2SAT 98
--- NOTE | 2017-07-04 16:03 | EMERGENCY ROOM VISIT NOTE ---
ED Visit Note First contact with patient: 13:59 CHIEF COMPLAINT: Left medial thigh pain, swelling and redness since yesterday morning HISTORY OF PRESENT ILLNESS: Patient is a 52-year-old white male with past medical history significant for atrial fibrillation, hypertension, tachycardia status post ablation and a congenital bicuspid aortic valve, with a history of a left lower extremity DVT, who presents to the emergency department for evaluation of left thigh pain, redness and swelling. He noticed pain in the medial left thigh after running the snowblower yesterday. He notes redness, warmth and swelling that appears similar to his prior DVT. He was anticoagulated with Coumadin for a year, he stopped his Coumadin in January 2017. He denies that he was ever diagnosed with a PE. He has no symptoms in the right leg. He rates his discomfort a 1/10. He had about 2 minutes of left- sided chest discomfort on Wednesday, which resolved, he states this is chronic for him after his ablation. He denies any shortness of breath, wheezing or pleuritic chest pain. REVIEW OF SYSTEMS: Review of systems as per HPI. All other systems reviewed were negative. 10 systems reviewed. PMH: Electronic medical records are reviewed and summarized as above/below. See Problem List. SOCIAL HISTORY: Patient lives at home by himself. He is . Former smoker. PHYSICAL EXAM: Vital Signs: Reviewed Nurse's notes. CONSTITUTIONAL: Patient is a well-appearing 52-year-old white male who is awake and alert and in no acute distress. CARDIOVASCULAR: Regular rate and rhythm, with normal S1 and S2, no murmur or gallop or rub is heard. No carotid bruits auscultated. No JVD. Peripheral pulses easily palpable. RESPIRATORY: Breath sounds equal and clear to auscultation without wheezes, rales, or rhonchi heard. Full and equal chest expansion without accessory muscle use or retractions. ABDOMEN: Bowel sounds are present. Abdomen is soft, nontender and nondistended. No guarding, rebound or rigidity. INTEGUMENTARY: No lesions or rash, normal skin turgor. LYMPH: No lymphadenopathy. EXTREMITIES: Examination of the left lower extremity notes erythema, warmth and mild tenderness in the medial left thigh. Trace pitting edema is noted in the pretibial area bilaterally, with mild chronic venostasis changes noted. No joint tenderness or effusions palpable. Hip, knee and ankle range of motion are full. Calves are soft and nontender bilaterally. Pulses equal bilaterally. No inguinal lymphadenopathy. There is no lymphangitic streaking. EMERGENCY DEPARTMENT COURSE: The patient was seen and evaluated as above. Old records are reviewed. He does have a history of a left lower extremity DVT, has been off of anticoagulation for about 5 months. He presents to the emergency department with superficial erythema, warmth, tenderness and induration in the left thigh. Ultrasound of the left lower extremity was obtained and findings are consistent with superficial thrombophlebitis of the greater saphenous vein and its branches in the level of the thigh. Thrombus noted in the popliteal vein appears chronic and not consistent with an acute DVT. Laboratory studies today are unremarkable. White count is normal. He is not anemic. Coags are within normal limits. Electrolytes are normal. His creatinine is up from his baseline slightly at 1.6, LFTs are otherwise normal. All laboratory and diagnostic imaging studies were reviewed with attending physician. The patient has a superficial thrombophlebitis of the greater saphenous vein in the thigh. He does not have evidence for acute DVT. No findings consistent with a cellulitis. He was encouraged to apply warm compresses, rest and elevate the leg, and take an anti-inflammatory medicine. He was encouraged to have close follow-up with his primary care provider for further care and management. Medication reconciliation: I attest that I have personally reviewed the patient' s current medication list. Blood pressure screening: Patient was found to have a slightly elevated blood pressure due to circumstances. I do not believe that the patient requires hypertension monitoring. ADDENDUM Within normal limits. Comparison made to a 12/17/2015 venous Doppler study. The left popliteal vein thrombosis is unchanged and therefore likely chronic. Electronically signed by: Itz Beaulieu M.D. 07/04/2017 3:50 PM Dictated Date/Time: 07/04/2017 3:50 PM ORIGINAL REPORT LEFT LOWER EXTREMITY VENOUS DOPPLER HISTORY: Left leg swelling. COMPARISON STUDY: None. FINDINGS: Occlusive thrombus seen within the left popliteal vein. There is also superficial vein thrombus identified within the greater saphenous vein and its branches at the level of the thigh. IMPRESSION: 1. Positive DVT within the left popliteal vein. 2. There is also superficial vein thrombus identified within the greater saphenous vein. Problem List Medical Problems: (1) Acute chest pain Status: Resolved (2) Anticoagulated on Coumadin Status: Resolved (3) AVNRT (AV sylvia re-entry tachycardia) Status: Resolved (4) Crum's esophagus Status: Chronic (5) Benign hypertension Status: Chronic (6) Bicuspid aortic valve Status: Chronic (7) Chest pain Status: Resolved (8) Deep vein thrombosis Status: Resolved (9) Gout, Unspecified Status: Chronic (10) Heart disease Status: Chronic (11) Left sided chest pain Status: Resolved (12) Nonsustained supraventricular tachycardia Status: Resolved (13) Pleurisy Status: Resolved (14) Tachycardia Status: Resolved Surgical Problems: (1) Catheterization of left heart Status: Resolved (2) History of radiofrequency ablation procedure for cardiac arrhythmia Status: Resolved Current/Historical Medications Scheduled Allopurinol (Allopurinol), 100 MG PO BID Aspirin (Aspirin Ec), 81 MG PO DAILY Lisinopril (Zestril), 40 MG PO DAILY Metoprolol Succinate (Toprol Xl), 12.5 MG PO DAILY Omeprazole (Prilosec), 20 MG PO DAILY Scheduled PRN Amoxicillin (Amoxil), 2,000 MG PO UD PRN for Pre Treat Allergies Coded Allergies: Acetaminophen (Verified Allergy, Mild, MIGHT HAVE CAUSED RAPID HEART BEAT , 07/04/17) Dextromethorphan (Verified Allergy, Mild, MIGHT HAVE CAUSED RAPID HEART BEAT, 07/04/17) Doxylamine (Verified Allergy, Mild, MIGHT HAVE CAUSED RAPID HEART BEAT, ) Ethanol (Verified Allergy, Mild, MIGHT HAVE CAUSED RAPID HEART BEAT, ) Pseudoephedrine (Verified Allergy, Mild, MIGHT HAVE CAUSED RAPID HEART BEAT, 07/04/17) Phenylephrine (Unverified Allergy, Unknown, SVT per records , 07/04/17) Metoclopramide (Verified Adverse Reaction, Unknown, TREMORS, 07/04/17) Vital Signs Date Time Temp Pulse Resp B/P (MAP) Pulse Ox O2 Delivery O2 Flow Rate FiO2 07/04/17 15:33 78 18 126/75 98 Room Air 07/04/17 13:52 36.7 91 18 141/101 96 Room Air Laboratory Results 07/04/17 14:30 Red Blood Count 4.76, Mean Corpuscular Volume 87.6, Mean Corpuscular Hemoglobin 31.3, Mean Corpuscular Hemoglobin Concent 35.7, Mean Platelet Volume 9.4, Neutrophils (%) (Auto) 70.8, Lymphocytes (%) (Auto) 19.1, Monocytes (%) (Auto) 7.1, Eosinophils (%) (Auto) 1.9, Basophils (%) (Auto) 0.4, Neutrophils # (Auto) 5.85, Lymphocytes # (Auto) 1.58, Monocytes # (Auto) 0.59, Eosinophils # (Auto) 0.16, Basophils # (Auto) 0.03 07/04/17 14:30 Test 07/04/17 14:30 White Blood Count 8.27 K/uL (4.8-10.8) Red Blood Count 4.76 M/uL (4.7-6.1) Hemoglobin 14.9 g/dL (14.0-18.0) Hematocrit 41.7 % (42-52) Mean Corpuscular Volume 87.6 fL (80-100) Mean Corpuscular Hemoglobin 31.3 pg (25-34) Mean Corpuscular Hemoglobin Concent 35.7 g/dl (32-36) Platelet Count 181 K/uL (130-400) Mean Platelet Volume 9.4 fL (7.4-10.4) Neutrophils (%) (Auto) 70.8 % Lymphocytes (%) (Auto) 19.1 % Monocytes (%) (Auto) 7.1 % Eosinophils (%) (Auto) 1.9 % Basophils (%) (Auto) 0.4 % Neutrophils # (Auto) 5.85 K/uL (1.4-6.5) Lymphocytes # (Auto) 1.58 K/uL (1.2-3.4) Monocytes # (Auto) 0.59 K/uL (0.11-0.59) Eosinophils # (Auto) 0.16 K/uL (0-0.5) Basophils # (Auto) 0.03 K/uL (0-0.2) RDW Standard Deviation 40.1 fL (36.4-46.3) RDW Coefficient of Variation 12.5 % (11.5-14.5) Immature Granulocyte % (Auto) 0.7 % Immature Granulocyte # (Auto) 0.06 K/uL (0.00-0.02) Prothrombin Time 10.7 SECONDS (9.0-12.0) Prothromb Time International Ratio 1.0 (0.9-1.1) Activated Partial Thromboplast Time 26.1 SECONDS (21.0-31.0) Partial Thromboplastin Ratio 1.0 Anion Gap 6.0 mmol/L (3-11) Est Creatinine Clear Calc Drug Dose 66.2 ml/min Estimated GFR () 55.4 Estimated GFR (Non- 47.8 BUN/Creatinine Ratio 7.6 (10-20) Calcium Level 8.8 mg/dl (8.5-10.1) Total Bilirubin 0.5 mg/dl (0.2-1) Aspartate Amino Transf (AST/SGOT) 14 U/L (15-37) Alanine Aminotransferase (ALT/SGPT) 21 U/L (12-78) Alkaline Phosphatase 69 U/L (45-117) Total Protein 6.4 gm/dl (6.4-8.2) Albumin 3.7 gm/dl (3.4-5.0) Globulin 2.7 gm/dl (2.5-4.0) Albumin/Globulin Ratio 1.4 (0.9-2) Departure Information Impression Primary Impression: Superficial phlebitis and thrombophlebitis of right lower extremity Referrals Joshua Machado M.D.([facility]) (PCP) Patient Instructions [facility] Additional Instructions Ibuprofen(Motrin, Advil) may be used for fever or pain. Use 600mg every six hours as needed. Take with food. Avoid using more than 2400mg in a 24 hour period. Do not use 2400mg per day for more than three consecutive days without physician direction. Prolonged inappropriate use can lead to stomach upset or ulcers. (AND/OR) Acetaminophen(Tylenol) may be used for fever or pain. Use 1000mg every six hours as needed. Avoid using more than 3000mg in a 24 hour period. Warm compresses to the affected area 4 times daily for 15-20 minutes. Rest and elevate the leg as much as possible for pain and swelling. Rest and drink plenty of fluids. Continue current medications. Return to the ER for severe pain, fevers, spreading redness, chest pain, shortness of breath or any worsening of your condition. Follow up with your primary physician this week for a recheck of the current condition.
== END 2017-07-04 16:08 | disposition home or self-care (01) ==
LOC: C.EDB 13:44 → C.EDC 16:08
DX: I80.01 Phlebitis and thrombophlebitis of superficial vessels of right lower extremity (principal); I48.91 Unspecified atrial fibrillation; Z86.718 Personal history of other venous thrombosis and embolism; I11.9 Hypertensive heart disease without heart failure; Z87.891 Personal history of nicotine dependence; K22.70 Barrett's esophagus without dysplasia; M10.9 Gout, unspecified; Z79.82 Long term (current) use of aspirin; Z79.899 Other long term (current) drug therapy

== ENCOUNTER → 2017-07-13 | Day surgery (SDC) | payer BC ==
[~2017-07-13] VITALS: Ht 170.2 cm; Wt 123.0 kg
[~2017-07-13] MED LIST changes: +ASPI81TA28 PO; -FURO-85 PO; +OPTIRAY 320 IV PRN; +SODIUM CHLORIDE 0.9% 1000ML 250 ML IV SCH; -WARF5TAB7 PO
[2017-07-13 07:06] VITALS: BP 175/92; PULSE 63; TEMP 36.4; O2SAT 96; Ht 170.2 cm; Wt 123.0 kg
--- NOTE | 2017-07-13 09:51 | DIAGNOSTIC IMAGING REPORT ---
NECK CTA HISTORY: Altered mental status. Vision changes. Dizziness. TECHNIQUE: Multiaxial CT images of the neck were performed following the intravenous administration of contrast to evaluate the major cervical vessels. Maximum intensity projection images were also obtained. All measurements were calculated based on NASCET criteria. A dose lowering technique was utilized adhering to the principles of ALARA. COMPARISON STUDY: None. FINDINGS: The aortic arch and proximal great vessels are widely patent. There is no significant stenosis, occlusion, or dissection identified within the bilateral common carotid, internal carotid, or vertebral arteries. Tortuous mid to distal bilateral internal carotid arteries. IMPRESSION: No significant stenosis, occlusion, or dissection identified within the carotid or vertebral arteries. Electronically signed by: Itz Beaulieu M.D. 07/13/2017 9:50 AM Dictated Date/Time: 07/13/2017 9:42 AM
--- NOTE | 2017-07-13 11:10 | DIAGNOSTIC IMAGING REPORT ---
CT ANGIOGRAM OF THE BRAIN COMBO CLINICAL HISTORY: Change in mental status. Dizziness. Tinnitus. COMPARISON STUDY: No priors. TECHNIQUE: Unenhanced axial CT scan of the brain is performed. Subsequently, following the IV administration of 93 cc of Optiray 320, CT angiogram of the brain was performed from the skull base to the vertex. Images are reviewed in the axial, sagittal, and coronal planes. 3-D MIPS images are created and assessed. IV contrast was administered without complication. A dose lowering technique was utilized adhering to the principles of ALARA. CT DOSE: 1169.05 mGy.cm FINDINGS: Brain parenchyma: There is mild subcortical and periventricular microangiopathic disease. There is no hemorrhage, mass effect, or evidence of acute territorial ischemia by CT criteria. There is no evidence of enhancing mass lesion on the angiogram phase images. No extra-axial fluid collection is seen. Falk-white matter differentiation is preserved. Ventricles, sulci, and cisterns: Normal in configuration. CT angiogram of the brain: There is mild atherosclerotic calcification of the cavernous carotid and vertebral arteries. The internal carotid arteries are widely patent, as are the anterior and middle cerebral arteries. The vertebrobasilar system and posterior cerebral arteries are widely patent. There is mild dolichoectasia of the basilar artery which measures up to 6 mm. The vertebral arteries are codominant. There is no aneurysm, high-grade stenosis, or focal vessel cutoff identified throughout the intracranial circulation. Dural sinuses: Clear as visualized. Orbits: The bony orbits are intact. The orbital contents are normal as visualized. Sinuses and mastoids: The visualized paranasal sinuses are clear. The mastoid air cells are well pneumatized. Calvarium: Unremarkable. IMPRESSION: 1. There is no hemorrhage, mass effect, or evidence of acute territorial ischemia by CT criteria.. 2. Unremarkable CT angiogram of the brain. Electronically signed by: Curry Demarco M.D. 07/13/2017 11:08 AM Dictated Date/Time: 07/13/2017 11:03 AM
== END | disposition home or self-care (01) ==
LOC: C.MTU 06:50
PROVIDERS: ATTEND Psychiatry & Neurology Neurology
DX: R40.4 Transient alteration of awareness (principal); H53.9 Unspecified visual disturbance; R42 Dizziness and giddiness; H93.11 Tinnitus, right ear; Z29.8 Encounter for other specified prophylactic measures

== ENCOUNTER → 2017-09-30 | Day surgery (SDC) | payer BC ==
[~2017-09-30] VITALS: Ht 172.7 cm; Wt 125.0 kg
[~2017-09-30] MED LIST changes: +ASPIRIN 81 MG CHEW ONE; +DC ALL ANTICOAGULANTS ONE; +FENTANYL CITRATE INJ 50 MCG/1 ML 2 ML VIAL ONE; +HEPARIN SOD (PORCINE) 1000 UNIT/ML 10 ML VIAL ONE; +LIDOCAINE HCL 1% 20 ML VIAL ONE; -METO25TA3 PO; +METO25TA4 PO; +MIDAZOLAM HCL 1 MG/ML 2ML VIAL ONE; +NITROGLYCERIN/D5W 100MCG/ML 20ML SYR ONE; +NiCARDipine HCL INJ 2.5 MG/ML 10 ML AMP ONE; -OPTIRAY 320 IV PRN; +SODIUM CHLORIDE 0.9% 1000ML 1,000 ML IV SCH; -SODIUM CHLORIDE 0.9% 1000ML 250 ML IV SCH; +WARF1TAB PO
[2017-09-30 07:09] VITALS: BP 167/95; PULSE 60; TEMP 36.5; O2SAT 96; Ht 172.7 cm; Wt 125.0 kg
--- NOTE | 2017-09-30 07:45 | History and Physical ---
History & Physical Date Sep 30, 2017. Chief Complaint near syncope; chest pain, GAXIOLA History of Present Illness The patient is a 52 year old male with complaints of near syncope, chest pain and GAXIOLA. He was seen in my office due to the nera syncope-I recommended before further EP work up a cardiac CT which revealed possible CAD so he is being referred now to have a cardiac catheterization. Past Medical/Surgical History Medical Problems: (1) Acute chest pain (2) Anticoagulated on Coumadin (3) AVNRT (AV sylvia re-entry tachycardia) (4) Rcum's esophagus (5) Benign hypertension (6) Bicuspid aortic valve (7) Chest pain (8) Deep vein thrombosis (9) Gout, Unspecified (10) Heart disease (11) Left sided chest pain (12) Nonsustained supraventricular tachycardia (13) Pleurisy (14) Tachycardia Surgical Problems: (1) Catheterization of left heart (2) History of radiofrequency ablation procedure for cardiac arrhythmia Additional History Hepatic Disease: No Endocrine Disorder: No Kidney Disease: No Hypertension: Yes Heart Disease: Yes Bleeding Tendencies: No Infectious Diseases: No Allergies Coded Allergies: Acetaminophen (Verified Allergy, Mild, MIGHT HAVE CAUSED RAPID HEART BEAT , 07/04/17) Dextromethorphan (Verified Allergy, Mild, MIGHT HAVE CAUSED RAPID HEART BEAT, 07/04/17) Doxylamine (Verified Allergy, Mild, MIGHT HAVE CAUSED RAPID HEART BEAT, ) Ethanol (Verified Allergy, Mild, MIGHT HAVE CAUSED RAPID HEART BEAT, ) Pseudoephedrine (Verified Allergy, Mild, MIGHT HAVE CAUSED RAPID HEART BEAT, 07/04/17) Phenylephrine (Unverified Allergy, Unknown, SVT per records , 07/04/17) Metoclopramide (Verified Adverse Reaction, Unknown, TREMORS, 07/04/17) Home Medications Scheduled Allopurinol (Allopurinol), 100 MG PO BID Aspirin (Aspirin Ec), 81 MG PO DAILY Lisinopril (Zestril), 40 MG PO DAILY Metoprolol Succinate (Toprol Xl), 12.5 MG PO DAILY Omeprazole (Prilosec), 20 MG PO DAILY Warfarin Sodium (Coumadin), 1 TAB PO DAILY Scheduled PRN Amoxicillin (Amoxil), 2,000 MG PO UD PRN for Pre Treat Physical Examination Skin: warm/dry, no rash Eyes: EOMI, sclerae normal Head: normocephalic, atraumatic Neck: supple Respiratory/Chest: lungs clear, normal breath sounds Cardiovascular: regular rate, rhythm, no edema, + systolic murmur Abdomen / GI: normal bowel sounds, non tender Back: normal inspection Extremities: + pertinent finding (trace LE edema b/l) Neurologic/Psych: alert, oriented x 3 Addiitonal Comments: normal radial, DP pulses b/l Diagnosis 1. Chest pain and GAXIOLA 2. Abnormal Cardiac CT 3. Near syncope 4. PAT 5. Sinus bradycardia 6. 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 HTN 8. HLD 9. Bicuspid AV 10. DVT on Left LE 11/2015 previously on coumadin stopped in 11/2016; however recurrent peripheral vein LE thrombus 07/2017 so started back on coumadin 08/2017 11. Family history of premature CAD and valvular disease 12. Morbid obesity 13. Snoring 14. Crum's esophagus 15. Gout ASA Classification: ASA Class III Plan of Treatment Recommend cardiac catheterization to be performed by my partner Dr. Mayorga. Pt was explained the procedure as well as potential risks-he expressed an understanding and is agreeable to proceed. he has held his coumadin for 5 days. Further recommendations from an EP perspective after results of caridac catheterization-possible LINQ insertion as an outpatient.
--- NOTE | 2017-09-30 08:24 | Pre Sedation Assessment ---
Pre Sedation Assessment General Date of Sedation: Sep 30, 2017. Vital Signs Past 12 Hours Date Time Temp Pulse Resp B/P (MAP) Pulse Ox O2 Delivery O2 Flow Rate FiO2 09/30/17 07:09 36.5 60 16 167/95 (119) 96 Room Air Review Cardiovascular: regular rate, rhythm, no murmur Lungs: lungs clear, normal breath sounds Pre-Sedation Airway Assessment Smoking Status: Never Smoker Hx of Sleep Apnea: No Hx of difficult intubation: No Short Thick Neck: Yes Thyro-mental Distance: > 3 Finger Breadths Oral Cavity: WNL Mallampati Classification: Class III ASA Classification: Class II NPO Status Date of Last Intake of Fluids: Sep 29, 2017 Time of Last Intake of Fluids: 1800 Date of Last Intake of Solids: Sep 29, 2017 Time of Last Intake of Solids: 1800 Procedure Planning Contraindications for Sedation: None Current Medications Reviewed: Yes Notes The planned sedation has been discussed with the patient. Informed Consent was obtained. I have identified the patient, determined the appropriateness of sedation and have assessed the patient immediately prior to the procedure. All medicine(s) and interventions are by my order.
--- NOTE | 2017-09-30 10:31 | Procedure Note ---
Cardiac Cath Report Procedure: 1. Coronary angiography History: This is a 52-year-old male patient who is being evaluated by the EP service who recommended an ischemic workup. He had an abnormal CT coronary angiogram and has been referred for cardiac catheterization. Procedure summary: The patient was seen and evaluated in the holding area the Destination Sign Repairer. After informed consent was obtained the patient was taken to the cardiac catheterization lab and prepped and draped in the usual manner for a right transradial approach. Preformed 5 Faroese diagnostic catheters were utilized for the coronary angiograms. Following the procedure the patient was returned to the holding area the Destination Sign Repairer in stable condition. Coronary angiography: Selective injections of the left coronary artery revealed the left main trunk to be widely patent. The left circumflex artery consists mainly of a large lateral marginal branch. The left circumflex artery is widely patent. The LAD extends all the way around the apex of the heart. The LAD gives off a large first marginal branch and a second smaller marginal branch distally. The LAD system in its proximal and mid segment is diffusely diseased with the most narrow point being a 30-50% stenosis in the mid LAD. The remainder of the artery is widely patent. Selective injections of the right coronary artery reveal it to be dominant. The right coronary artery is widely patent. Summary: The patient has nonobstructive coronary artery disease of the proximal and mid LAD with the remainder the coronary anatomy being widely patent. Recommendations: Continued risk factor modification for the patient's coronary artery disease.
--- NOTE | 2017-09-30 10:31 | Post Sedation Assessment ---
Post Sedation Assessment General Date of Sedation Sep 30, 2017. Vital Signs: Vital Signs Past 12 Hours Date Time Temp Pulse Resp B/P (MAP) Pulse Ox O2 Delivery O2 Flow Rate FiO2 09/30/17 10:12 60 18 160/92 (114) 96 Room Air 09/30/17 07:09 36.5 60 16 167/95 (119) 96 Room Air Post Procedure Recovery Score Activity: (2) Moves 4 extremities * Respiration: (2) Deep breath/cough Circulation: (2) +/-20% PreAnes Value Consciousness: (2) Fully Awake Oxygen Saturation: (2) > 92% On Room Air Post Anesthesia Score: 10 Discharge Sedation Level of Care: Fast Track Phase II Post Sedation Plan On clinical assessment, the patient appears to have tolerated the sedation without complications. Patient is recovering as anticipated. Patient will continue to be monitored by nursing and may be discharged when sedation discharge criteria are met per below protocol. Upon Completions of procedure and additional 15 minutes continue every 5 minute vital signs and the P.A.R. score; then discharge to a Phase I or Fast Track to Phase II per the following guidelines: * Discharge Patient to appropriate Phase II area if PAR is 8 or greater or return to pre- procedure baseline. The post - procedure orders will be as directed. * If PAR score is less than 8 or not return to pre-procedure baseline then patient will follow Phase I monitoring till PAR is reached for Phase II. The Phase I may be done in procedure room or may call to secure a Phase I area. * If naloxone or flumazenil are used for reversal, hold in Phase I for an additional 60 -120 minutes before discharge to Phase II. Please call the Sedation Physician to re-evaluate and complete post-note for discharge to Phase II area. Do NOT discharge from procedure sedation or Phase 1 until post- sedation evaluation note is complete by procedure /sedation MD Sedation Discharge Instructions to be given to the patient at discharge to home.
--- NOTE | 2017-09-30 10:35 | Cardiac Catheterization ---
Procedure Note Procedure Date Sep 30, 2017. Pre-Procedure Diagnosis CAD AUC Score 7 Post-Procedure Diagnosis Moderate CAD Procedure(s) Performed Coronary Angiography Copy Preparer Dr. Mayorga Stator Plate Washer(s) None Estimated Blood Loss None Medication(s) Versed, Lidocaine 1% Summary of Findings See dictated report Hemodynamics Rest Ao: 150/93 Final Ao: 155/91 LV: Valve not crossed Recommendations Medical therapy and/or Counseling Specimens None Radiation Exposure (mGy) 2228 Contrast (mls) 93 Procedural Complication(s) None Disposition Straight Line Press Setter Holding/Recovery ACC Data Cardiac Status Clinical evaluation leading to the procedure CAD Presntation: No Sxs, no angina Anginal Classification: No symptoms Heart Failure: No Cardiogenic Shock w/in 24Hrs: No Cardiac Arrest w/in 24Hrs: No Imaging studies past 6 months: Yes Cardiac CTA: Yes - Indeterminant Coronary Anatomy Dominant: Right Left Main (% Stenosis): Normal LAD (% Stenosis): Proximal (30%), Mid (30-50%) Circumflex (% Stenosis): Normal RCA (% Stenosis): Normal Diagnostic Status: Elective Closure Device Percutaneous Entry Location: Radial Closure Device: Radial Band Recommendations: Medical therapy and/or Counseling
--- NOTE | 2017-09-30 10:37 | Discharge Instructions ---
Discharge Instructions Procedure Procedure Date: Sep 30, 2017. Reason for Visit: Coronary Only, Abnormal Cardiac Ct, *[place] To Do*. Discharge Discharge Date: Sep 30, 2017. Discharge Diagnosis: Coronary artery disease Last Recorded Wt (Kilograms): 125 Anesthesia Post Anesthesia Instructions: If you have had General Anesthesia or IV Sedation: * Do not drive today. * Resume driving when surgeon permits. * Do not make important decisions or sign legal documents today. * Call surgeon for: 1. Temperature elevations greater than 101 degrees F. 2. Uncontrollable pain. 3. Excessive bleeding. 4. Persistent nausea and vomiting. 5. Medication intolerance (nausea, vomiting or rash). * For nausea and vomiting use only clear liquids such as: tea, soda, bouillon until nausea subsides, then gradually increase diet as tolerated. * If you have any concerns or questions, call your surgeon's office. If physician is unavailable and it is an emergency, call 911 or go to the nearest emergency room. Instructions Activity Recommendations: limitations Recommended Home Diet: resume previous diet Allergies: Coded Allergies: Acetaminophen (Verified Allergy, Mild, MIGHT HAVE CAUSED RAPID HEART BEAT , 07/04/17) Dextromethorphan (Verified Allergy, Mild, MIGHT HAVE CAUSED RAPID HEART BEAT, 07/04/17) Doxylamine (Verified Allergy, Mild, MIGHT HAVE CAUSED RAPID HEART BEAT, ) Ethanol (Verified Allergy, Mild, MIGHT HAVE CAUSED RAPID HEART BEAT, ) Pseudoephedrine (Verified Allergy, Mild, MIGHT HAVE CAUSED RAPID HEART BEAT, 07/04/17) Phenylephrine (Unverified Allergy, Unknown, SVT per records , 07/04/17) Metoclopramide (Verified Adverse Reaction, Unknown, TREMORS, 07/04/17) Provider Instructions ACTIVITY RECOMMENDATIONS: Excess manipulation of the wrist should be avoided for the next 24-48 hours. * No lifting over 2 pounds (approximately a 1/2 gallon of milk) with the utilized arm for 24 hours. * No strenuous activity such as bowling or tennis for 3 days. * Keep the site of the procedure covered with a bandage for 24 hours. *You may shower the day after the procedure. Do not take a tub bath or submerge the puncture site in water for the next 3 days. *Do not operate any motorized equipment for 3 days. SPECIAL CARE INSTRUCTIONS: The site may be slightly bruised and sore following your procedure. Should any of the following occur, contact the Dr. who performed your procedure. 1. Redness/inflammation, swelling, chills, or fever, or colored drainage at procedure site within 3-7 days after your procedure. 2. Coldness, discoloration, ongoing numbness, severe pain, or swelling. Expect mild tingling of hand and tenderness at the puncture site for up to three days. If this persists beyond three days, or other symptoms develop, notify the Dr. who performed your procedure. BLEEDING: If the procedure site on your wrist begins to bleed, do not panic 1. Place 1 or 2 fingers firmly just slightly above the insertion site to stop the bleeding. You may be able to feel your pulse as you hold pressure. 2. Lift your finger after 5 minutes to see if the bleeding has stopped. 3. Once the bleeding has stopped, gently wipe the wrist area clean with a bandage. * If the bleeding from your wrist does not stop after 10 minutes, or if there is a large amount of bleeding or spurting, call 911 (do not drive yourself to the hospital). SKIN IRRITATION: * You may experience some redness and/or swelling in the area where radiation was administered. If any skin irritation occurs, please contact your family physician. FOLLOW UP VISIT: Keep any scheduled doctor appointments. Follow Up Follow-up with: Follow-up with Dr. Gomez as previously scheduled Sabine Lopez Recommendations: Call your doctor if: * Temperature above 101 degrees * Pain not relieved by pain medicine ordered * There is increased drainage or redness from any incision * You have any unanswered questions or concerns. Your Doctors Instructions noted above were prepared by provider Harsha Mayorga. Patient Signature Section: Patient Instructions Signature Page Merritt Holloway Patient (or Guardian) Signature/Date: I have read and understand the instructions given to me by my caregivers. Caregiver/RN/Doctor Signature/Date: The above-named patient and/or guardian has received patient instructions on this date. + Original Patient Signature Page (only) stays with chart. Please make copy for patient.
[2017-09-30 11:45] VITALS: O2SAT 96
[2017-09-30 12:15] VITALS: BP 164/100; PULSE 70
== END | disposition home or self-care (01) ==
LOC: C.CATH 06:53
PROVIDERS: ATTEND Internal Medicine
DX: I25.10 Atherosclerotic heart disease of native coronary artery without angina pectoris (principal); R55 Syncope and collapse; M10.9 Gout, unspecified; I51.9 Heart disease, unspecified; E66.01 Morbid (severe) obesity due to excess calories; I11.9 Hypertensive heart disease without heart failure; Q23.1 Congenital insufficiency of aortic valve; Z79.52 Long term (current) use of systemic steroids; Z79.899 Other long term (current) drug therapy; Z79.01 Long term (current) use of anticoagulants; Z82.49 Family history of ischemic heart disease and other diseases of the circulatory system; Z88.8 Allergy status to other drugs, medicaments and biological substances; Z86.718 Personal history of other venous thrombosis and embolism